=== PATIENT | male | born 1985 | race Caucasian/White ===

== ENCOUNTER 2020-12-23 11:02 | Day surgery (SDC) | payer BC ==
[~2020-12-23] VITALS: Ht 190.5 cm; Wt 87.7 kg
[2020-12-23 11:34] VITALS: BP 115/75; PULSE 72; TEMP 98.9
[2020-12-23] MEDS ORDERED: NORCO 325 MG-51 TAB PO (14:07)
[2020-12-23 14:55] VITALS: BP 121/81; PULSE 70; TEMP 98.8
[2020-12-23 15:00] VITALS: BP 121/81; PULSE 74
[2020-12-23 15:15] VITALS: BP 116/72; PULSE 65
[2020-12-23 15:30] VITALS: BP 113/71; PULSE 65
--- NOTE | 2020-12-23 16:14 | NUR ---
1445 Bedside report received on pt from Muriel POULTRY TRIMMER. 1450 Care taken over by this RN. Transport pt from PACU to [facility] via cart and this RN. 1451 Arrive to [place] [id number]. Breana, friend, present in room. Monitors on and alarms set. Call light within reach. Pt alert and oriented. Pt states main is minimal and no nausea or vomiting. Pt requests water and no food at this time. 1515 Pt taking drink well. 1540 Pt ambulates to restroom with this RN assisting. 1543 Pt ambulates back to [place] [id number] having voided. This RN assist to room. 1545 Pt requests applesauce and pudding to eat. 1550 Pt takes food well. 1600 Discharge instructions given to pt including a thank you card and follow-up appt at [facility] January 09, at 9:00 am. All questions answered to their satisfaction. 1614 Pt transferred out of hospital via wheelchair and this RN to private vehicle driven by friend.
== END 2020-12-23 16:14 | disposition home or self-care (01) ==
LOC: SDCO 11:02
DX: K40.90 Unilateral inguinal hernia, without obstruction or gangrene, not specified as recurrent (principal); F12.90 Cannabis use, unspecified, uncomplicated; Z20.822 Contact with and (suspected) exposure to COVID-19
CPT/HCPCS: C1781; J0690; J1885; J2405; J2704; J3010; J7120